=== PATIENT | male | born 1960 | race Caucasian/White ===

== ENCOUNTER 2017-03-24 20:05 | Emergency (ER) | payer OTHER ==
[~2017-03-24] VITALS: Ht 182.9 cm; Wt 100.8 kg
[2017-03-24 20:07] VITALS: BP 140/86
[2017-03-24] MEDS ORDERED: FAMOTIDINE 20 MG/2 ML IVP ONE (20:30)
[2017-03-24] MEDS ORDERED: MORPHINE SULFATE 4 MG/ML, 1ML IVPush PRN (20:30)
[2017-03-24] MEDS ORDERED: SODIUM CHLORIDE 0.9% 1,000ML IVBOLUS ONE (20:30)
[2017-03-24] MEDS ORDERED: ONDANSETRON 2MG/ML, 2ML IVPush ONE (20:30)
[2017-03-24] MEDS ORDERED: SODIUM CHLORIDE FLUSH 10ML SYR IVF ONE (20:30)
[2017-03-24] MEDS ORDERED: ONDANSETRON 2MG/ML, 2ML ONE (20:54)
[2017-03-24] MEDS ORDERED: FAMOTIDINE 20 MG/2 ML ONE (20:54)
[2017-03-24 21:05] LABS: HEMATOCRIT 47.5 % (39.2-51.8); HEMOGLOBIN 16.2 g/dL (13.7-18.0); WHITE BLOOD COUNT 16.2 x10^3/uL (3.4-10)
[2017-03-24 21:19] LABS: ASPARTATE AMINO TRANSFERASE 12 U/L (15-37); BLOOD UREA NITROGEN 20 mg/dL (7-18)
[2017-03-24] MEDS ORDERED: OMNIPAQUE 350 MG/ML, 100ML BOTTLE ONE (21:51)
== END 2017-03-24 23:16 | disposition home or self-care (01) ==
LOC: ED 23:00
DX: A09 Infectious gastroenteritis and colitis, unspecified (principal); N39.0 Urinary tract infection, site not specified
CPT/HCPCS: 36415; 74020; 74177; 80053; 81001; 83690; 85025; 87086; 93005; 96361; 96374; 96375; 99285; J2405; J7030; Q9967; S0028

== ENCOUNTER 2020-12-30 18:08 | Inpatient (IN) | payer OTHER ==
[~2020-12-30] VITALS: Ht 182.9 cm; Wt 93.5 kg
[2020-12-30] MEDS ORDERED: PLEASE ENTER HEIGHT AND WEIGHT MC SCH (18:30)
--- NOTE | 2020-12-30 18:55 | NUR ---
UA sent from triage
[2020-12-30 19:18] LABS: MICROSCOPIC INDICATED
[2020-12-30] MEDS ORDERED: SODIUM CHLORIDE FLUSH 10ML SYR IVF ONE ×2 (19:30→21:30)
[2020-12-30 19:34] LABS: BASOPHILS % (AUTO) 0 % (0-1); EOSINOPHILS % (AUTO) 0 % (1-7); LYMPHOCYTES % (AUTO) 4 % (22-44); MEAN CORPUSCULAR HEMOGLOBIN 31.2 pg (27.5-34.5); MEAN CORPUSCULAR HGB CONC 34.1 g/dL (33.2-36.2); MEAN PLATELET VOLUME 7.6 fL (7.4-10.4); MONOCYTES % (AUTO) 7 % (2-9); NEUTROPHILS % (AUTO) 88 % (42-75); PLATELET COUNT 247 x10^3/uL (130-400); RED BLOOD COUNT 5.06 x10^6/uL (4.38-5.82); RED CELL DISTRIBUTION WIDTH 13.3 % (9.4-14.8)
[2020-12-30 19:42] LABS: ALBUMIN 3.6 g/dL (3.4-5.0); ANION GAP 9 mmol/L (5-15); CALCIUM 8.9 mg/dL (8.5-10.1); CHLORIDE 100 mmol/L (98-107); CREATININE 1.44 mg/dL (0.7-1.3)
[2020-12-30 19:51] LABS: ALANINE AMINOTRANSFERASE 28 U/L (12-78); ALKALINE PHOSPHATASE 65 U/L (45-117); BILIRUBIN,TOTAL 1.8 mg/dL (0.2-1.0); TOTAL PROTEIN 7.7 g/dL (6.4-8.2)
[2020-12-30] MEDS ORDERED: ONDANSETRON 2MG/ML, 2ML IVPush ONE (21:30)
[2020-12-30] MEDS ORDERED: SODIUM CHLORIDE 0.9% 1,000ML IVBOLUS ONE (21:30)
--- NOTE | 2020-12-30 21:37 | NUR ---
PT C/O OF RLQ ABD PAIN SINCE THURSDAY. PT REPORTS FATIGUE AND NAUSEA. REPORTS FEVER/CHILL. DENIES CP, SOB, HEADACHE. ATTACHED TO MONITORS, VSS. KENT AT [facility] AT [facility] FOR EVAL.
[2020-12-30] MEDS ORDERED: MORPHINE SULFATE 4 MG/ML, 1ML ONE (21:52)
[2020-12-30] MEDS ORDERED: ONDANSETRON 2MG/ML, 2ML ONE (21:52)
[2020-12-30] MEDS: MORPHINE SULFATE 4 MG/ML, 1ML IVPush PRN (22:04)
--- NOTE | 2020-12-30 22:41 | NUR ---
PT OFF UNIT IN IMAGING.
[2020-12-30] MEDS ORDERED: OMNIPAQUE 350 MG/ML, 100ML BOTTLE ONE (23:57)
[2020-12-31] MEDS ORDERED: MORPHINE SULFATE 4 MG/ML, 1ML ONE
--- NOTE | 2020-12-31 00:02 | NUR ---
ANTIBIOTICS STARTED BEFORE CULTURES. NOTIFIED ERMD. ABOUT 1/4 OF ATX ENTERED PT. PAUSED ATX AND WILL CONTINUE TO START IT BACK UP AFTER BLOOD CULTURES HAVE BEEN COMPLETED. NADN. PT STATING PAIN IS STARTING TO COME BACK. VSS. WCTM
[2020-12-31] MEDS: MORPHINE SULFATE 4 MG/ML, 1ML IVPush PRN (00:07)
[2020-12-31] MEDS ORDERED: SODIUM CHLORIDE 0.9% 1,000ML IVBOLUS ONE (00:30)
[2020-12-31] MEDS ORDERED: PIPERACILLIN/TAZO 3.375 GM in DEXTROSE 5% 50 ML IVPB ONE (00:30)
--- NOTE | 2020-12-31 01:12 | NUR ---
GAVE REPORT TO EDER ZAFAR
[2020-12-31 01:29] VITALS: BP 112/73
[2020-12-31 02:03] VITALS: BP 112/73
[2020-12-31] MEDS ORDERED: BUPIVACAINE/PF 0.5% ONE (04:26)
[2020-12-31] MEDS ORDERED: EPINEPHRINE 1 MG/ML, 1ML ONE (04:26)
[2020-12-31] MEDS ORDERED: FENTANYL PF 100 MCG/2ML ONE ×3 (05:35→09:25)
[2020-12-31] MEDS ORDERED: HYDROmorphone 1 MG/ML, 1ML INJ IVPush PRN (06:00)
[2020-12-31] MEDS ORDERED: MIDAZOLAM 1 MG/ML, 2ML IV PRN (06:00)
[2020-12-31] MEDS ORDERED: PROMETHAZINE 25 MG/ML, 1ML IVPush PRN (06:00)
[2020-12-31] MEDS ORDERED: LABETALOL 5MG/ML, 20ML IV PRN (06:00)
[2020-12-31] MEDS ORDERED: ACETAMINOPHEN 325 MG TABLET PO PRN (06:00)
[2020-12-31] MEDS ORDERED: MEPERIDINE/PF 25MG/0.5ML IVPush PRN (06:00)
[2020-12-31] MEDS ORDERED: OXYcodone 5 MG/5 ML ORAL.SOL UDC PO PRN (06:00)
[2020-12-31] MEDS ORDERED: ALBUTEROL SULFATE 2.5 MG/3 ML NPPB PRN (06:00)
[2020-12-31] MEDS ORDERED: HYDROmorphone 1 MG/ML, 1ML INJ ONE (06:31)
[2020-12-31] MEDS ORDERED: GLYCOPYRROLATE 0.2MG/1ML, 5ML ONE (08:07)
[2020-12-31] MEDS ORDERED: PROPOFOL 10 MG/ML, 20ML ONE (08:07)
[2020-12-31] MEDS ORDERED: ROCURONIUM 10MG/ML,5ML ONE ×2 (08:07)
[2020-12-31] MEDS ORDERED: ONDANSETRON 2MG/ML, 2ML ONE (08:07)
[2020-12-31] MEDS ORDERED: CEFAZOLIN 1,000 MG ONE (08:07)
[2020-12-31] MEDS ORDERED: DEXAMETHASONE 4 MG/ML, 1ML ONE (08:07)
[2020-12-31] MEDS ORDERED: LIDOCAINE-MPF 2% ,5ML ONE (08:07)
[2020-12-31] MEDS ORDERED: NEOSTIGMINE 1 MG/ML, 10ML ONE (08:07)
[2020-12-31] MEDS: FENTANYL PF 100 MCG/2ML IV PRN ×3 (09:27→09:52)
[2020-12-31] MEDS ORDERED: ACETAMINOPHEN 650 MG/20.3 ML UDC ONE (09:36)
[2020-12-31] MEDS ORDERED: OXYcodone 5 MG/5 ML ORAL.SOL UDC ONE (09:36)
[2020-12-31] MEDS ORDERED: OXYcodone IR 5MG TABLET PO PRN (13:00)
[2020-12-31] MEDS: ACETAMINOPHEN 500 MG TABLET PO SCH ×2 (13:24→19:40)
[2020-12-31 15:30] VITALS: BP 123/74
[2020-12-31] MEDS: KETOROLAC 30 MG/1 ML IVPush SCH ×2 (15:47→21:21)
[2020-12-31] MEDS: OXYcodone IR 5MG TABLET PO PRN ×2 (18:03→22:37)
[2020-12-31] MEDS: GABAPENTIN 300 MG CAPSULE PO SCH ×2 (18:03→21:21)
[2020-12-31] MEDS: CALCIUM CARBONATE 500 MG TAB.CHEW PO PRN ×2 (18:03→21:34)
[2020-12-31] MEDS: PIPERACILLIN/TAZO 4.5 GM in DEXTROSE 5% 100 ML IVPB SCH (18:32)
[2020-12-31 20:09] VITALS: BP 122/77
[2020-12-31] MEDS: LACTATED RINGERS 1,000 ML IV SCH (21:21)
[2020-12-31 23:43] VITALS: BP 104/64
[2021-01-01] MEDS: PIPERACILLIN/TAZO 4.5 GM in DEXTROSE 5% 100 ML IVPB SCH ×4 (00:19→18:16)
[2021-01-01] MEDS: KETOROLAC 30 MG/1 ML IVPush SCH ×4 (02:33→21:10)
[2021-01-01] MEDS: ACETAMINOPHEN 500 MG TABLET PO SCH ×4 (02:33→19:40)
[2021-01-01 03:41] VITALS: BP 103/64
[2021-01-01] MEDS: OXYcodone IR 5MG TABLET PO PRN ×2 (06:20→21:10)
[2021-01-01] MEDS: CALCIUM CARBONATE 500 MG TAB.CHEW PO PRN ×4 (06:27→21:10)
[2021-01-01 06:29] LABS: BASOPHILS % (AUTO) 0 % (0-1); EOSINOPHILS % (AUTO) 0 % (1-7); LYMPHOCYTES % (AUTO) 6 % (22-44); MEAN CORPUSCULAR HEMOGLOBIN 31.3 pg (27.5-34.5); MEAN CORPUSCULAR HGB CONC 33.8 g/dL (33.2-36.2); MEAN PLATELET VOLUME 8.4 fL (7.4-10.4); MONOCYTES % (AUTO) 8 % (2-9); NEUTROPHILS % (AUTO) 87 % (42-75); PLATELET COUNT 215 x10^3/uL (130-400); RED BLOOD COUNT 3.85 x10^6/uL (4.38-5.82); RED CELL DISTRIBUTION WIDTH 13.9 % (9.4-14.8)
[2021-01-01 06:31] LABS: ALANINE AMINOTRANSFERASE 28 U/L (12-78); ALBUMIN 2.5 g/dL (3.4-5.0); ANION GAP 6 mmol/L (5-15); CALCIUM 8.1 mg/dL (8.5-10.1); CHLORIDE 104 mmol/L (98-107); CREATININE 1.32 mg/dL (0.7-1.3)
[2021-01-01 06:34] LABS: ALKALINE PHOSPHATASE 51 U/L (45-117); BILIRUBIN,TOTAL 0.8 mg/dL (0.2-1.0); TOTAL PROTEIN 5.8 g/dL (6.4-8.2)
[2021-01-01] MEDS: GABAPENTIN 300 MG CAPSULE PO SCH ×3 (08:26→21:10)
[2021-01-01 08:27] VITALS: BP 95/59
[2021-01-01] MEDS: LACTATED RINGERS 1,000 ML IV SCH ×2 (08:37→19:41)
[2021-01-01 11:37] LABS: BASOPHILS % (AUTO) 1 % (0-1); EOSINOPHILS % (AUTO) 0 % (1-7); LYMPHOCYTES % (AUTO) 5 % (22-44); MEAN CORPUSCULAR HEMOGLOBIN 31.4 pg (27.5-34.5); MEAN CORPUSCULAR HGB CONC 33.6 g/dL (33.2-36.2); MEAN PLATELET VOLUME 8.2 fL (7.4-10.4); MONOCYTES % (AUTO) 7 % (2-9); NEUTROPHILS % (AUTO) 86 % (42-75); PLATELET COUNT 223 x10^3/uL (130-400); RED BLOOD COUNT 3.92 x10^6/uL (4.38-5.82); RED CELL DISTRIBUTION WIDTH 13.6 % (9.4-14.8)
[2021-01-01 11:46] LABS: ANION GAP 7 mmol/L (5-15); CALCIUM 8.5 mg/dL (8.5-10.1); CHLORIDE 101 mmol/L (98-107)
[2021-01-01 11:57] LABS: CREATININE 1.48 mg/dL (0.7-1.3)
[2021-01-01 12:05] LABS: C-REACTIVE PROTEIN, QUANT > 19.00 mg/dL (0.02-0.49)
[2021-01-01 13:11] VITALS: BP 113/78
[2021-01-01 20:29] VITALS: BP 128/81
[2021-01-02] MEDS: PIPERACILLIN/TAZO 4.5 GM in DEXTROSE 5% 100 ML IVPB SCH ×4 (01:24→19:31)
[2021-01-02] MEDS: ACETAMINOPHEN 500 MG TABLET PO SCH ×4 (01:24→21:47)
[2021-01-02] MEDS: OXYcodone IR 5MG TABLET PO PRN ×2 (01:24→17:15)
[2021-01-02] MEDS: CALCIUM CARBONATE 500 MG TAB.CHEW PO PRN ×3 (01:30→08:00)
[2021-01-02 03:19] VITALS: BP 133/79
[2021-01-02] MEDS: KETOROLAC 30 MG/1 ML IVPush SCH ×4 (03:58→23:22)
[2021-01-02] MEDS: LACTATED RINGERS 1,000 ML IV SCH ×2 (03:58→10:42)
[2021-01-02 05:33] LABS: BASOPHILS % (AUTO) 0 % (0-1); EOSINOPHILS % (AUTO) 2 % (1-7); LYMPHOCYTES % (AUTO) 6 % (22-44); MEAN CORPUSCULAR HGB CONC 34.7 g/dL (33.2-36.2); MEAN PLATELET VOLUME 8.3 fL (7.4-10.4); MONOCYTES % (AUTO) 8 % (2-9); NEUTROPHILS % (AUTO) 83 % (42-75); PLATELET COUNT 235 x10^3/uL (130-400); RED BLOOD COUNT 3.92 x10^6/uL (4.38-5.82); RED CELL DISTRIBUTION WIDTH 13.5 % (9.4-14.8)
[2021-01-02 05:38] LABS: CHLORIDE 102 mmol/L (98-107)
[2021-01-02 05:51] LABS: ANION GAP 4 mmol/L (5-15); CALCIUM 8.5 mg/dL (8.5-10.1); CREATININE 1.21 mg/dL (0.7-1.3)
[2021-01-02] MEDS: GABAPENTIN 300 MG CAPSULE PO SCH ×3 (07:59→21:47)
[2021-01-02 08:07] VITALS: BP 138/83
[2021-01-02 14:01] VITALS: BP 152/91
[2021-01-02] MEDS: FAMOTIDINE 20 MG TABLET PO SCH ×2 (14:53→21:47)
[2021-01-02 19:55] VITALS: BP 146/78
[2021-01-03] MEDS: PIPERACILLIN/TAZO 4.5 GM in DEXTROSE 5% 100 ML IVPB SCH ×4 (01:32→20:10)
[2021-01-03 01:59] VITALS: BP 147/88
[2021-01-03] MEDS: ACETAMINOPHEN 500 MG TABLET PO SCH ×4 (04:12→20:10)
[2021-01-03] MEDS: OXYcodone IR 5MG TABLET PO PRN ×2 (04:17→20:13)
[2021-01-03] MEDS: KETOROLAC 30 MG/1 ML IVPush SCH ×4 (05:31→23:27)
[2021-01-03 07:45] VITALS: BP 147/89
[2021-01-03] MEDS: D5%-0.45NACL+KCL 20MEQ 1,000 ML IV SCH ×3 (09:04→23:27)
[2021-01-03] MEDS: FAMOTIDINE 20 MG TABLET PO SCH ×2 (09:10→20:10)
[2021-01-03] MEDS: GABAPENTIN 300 MG CAPSULE PO SCH ×3 (09:10→20:10)
[2021-01-03 09:23] LABS: BASOPHILS % (AUTO) 1 % (0-1); EOSINOPHILS % (AUTO) 5 % (1-7); LYMPHOCYTES % (AUTO) 8 % (22-44); MEAN CORPUSCULAR HEMOGLOBIN 31.8 pg (27.5-34.5); MEAN CORPUSCULAR HGB CONC 34.3 g/dL (33.2-36.2); MONOCYTES % (AUTO) 9 % (2-9); NEUTROPHILS % (AUTO) 77 % (42-75); PLATELET COUNT 280 x10^3/uL (130-400); RED BLOOD COUNT 4.07 x10^6/uL (4.38-5.82); RED CELL DISTRIBUTION WIDTH 13.7 % (9.4-14.8)
[2021-01-03 09:36] LABS: ANION GAP 6 mmol/L (5-15); CALCIUM 8.7 mg/dL (8.5-10.1); CHLORIDE 104 mmol/L (98-107)
[2021-01-03 09:43] LABS: CREATININE 1.36 mg/dL (0.7-1.3)
[2021-01-03] MEDS: AMLODIPINE 10 MG TAB PO SCH (14:03)
[2021-01-03 14:43] VITALS: BP 157/95
[2021-01-03 20:35] VITALS: BP 106/86
[2021-01-04] MEDS: PIPERACILLIN/TAZO 4.5 GM in DEXTROSE 5% 100 ML IVPB SCH ×4 (01:32→23:39)
[2021-01-04 02:20] VITALS: BP 156/87
[2021-01-04] MEDS: ACETAMINOPHEN 500 MG TABLET PO SCH ×4 (03:00→21:38)
[2021-01-04 05:36] LABS: BASOPHILS % (AUTO) 1 % (0-1); EOSINOPHILS % (AUTO) 9 % (1-7); LYMPHOCYTES % (AUTO) 11 % (22-44); MEAN CORPUSCULAR HEMOGLOBIN 31.1 pg (27.5-34.5); MEAN CORPUSCULAR HGB CONC 33.8 g/dL (33.2-36.2); MEAN PLATELET VOLUME 7.1 fL (7.4-10.4); MONOCYTES % (AUTO) 10 % (2-9); NEUTROPHILS % (AUTO) 70 % (42-75); PLATELET COUNT 314 x10^3/uL (130-400); RED BLOOD COUNT 4.11 x10^6/uL (4.38-5.82); RED CELL DISTRIBUTION WIDTH 13.6 % (9.4-14.8)
[2021-01-04 05:47] LABS: CALCIUM 8.7 mg/dL (8.5-10.1); CHLORIDE 105 mmol/L (98-107)
[2021-01-04] MEDS: KETOROLAC 30 MG/1 ML IVPush SCH ×4 (05:47→23:39)
[2021-01-04 05:53] LABS: ALANINE AMINOTRANSFERASE 120 U/L (12-78); ALBUMIN 2.4 g/dL (3.4-5.0); ALKALINE PHOSPHATASE 97 U/L (45-117); ANION GAP 4 mmol/L (5-15); BILIRUBIN,TOTAL 0.7 mg/dL (0.2-1.0); TOTAL PROTEIN 6.1 g/dL (6.4-8.2)
[2021-01-04 07:49] VITALS: BP 139/86
[2021-01-04] MEDS: OXYcodone IR 5MG TABLET PO PRN ×3 (08:42→21:38)
[2021-01-04] MEDS: AMLODIPINE 10 MG TAB PO SCH (09:29)
[2021-01-04] MEDS: GABAPENTIN 300 MG CAPSULE PO SCH ×3 (09:29→21:38)
[2021-01-04] MEDS: D5%-0.45NACL+KCL 20MEQ 1,000 ML IV SCH ×2 (09:30→21:37)
[2021-01-04] MEDS: FAMOTIDINE 20 MG TABLET PO SCH ×2 (09:52→21:38)
[2021-01-04 13:59] VITALS: BP 128/84
[2021-01-04] MEDS: ENOXAPARIN 40 MG/0.4 ML SQ SCH (14:21)
[2021-01-04 20:32] VITALS: BP 145/88
[2021-01-05 02:47] VITALS: BP 135/86
[2021-01-05] MEDS: ACETAMINOPHEN 500 MG TABLET PO SCH ×4 (03:00→21:03)
[2021-01-05] MEDS: PIPERACILLIN/TAZO 4.5 GM in DEXTROSE 5% 100 ML IVPB SCH ×4 (05:36→23:01)
[2021-01-05] MEDS: KETOROLAC 30 MG/1 ML IVPush SCH (05:36)
[2021-01-05 06:40] VITALS: BP 144/87
[2021-01-05] MEDS: GABAPENTIN 300 MG CAPSULE PO SCH ×3 (08:17→21:03)
[2021-01-05] MEDS: FAMOTIDINE 20 MG TABLET PO SCH ×2 (08:17→21:03)
[2021-01-05] MEDS: AMLODIPINE 10 MG TAB PO SCH (08:17)
[2021-01-05] MEDS ORDERED: IBUPROFEN 600 MG TABLET PO PRN (11:00)
[2021-01-05] MEDS: OXYcodone IR 5MG TABLET PO PRN ×2 (11:21→21:09)
[2021-01-05 15:12] VITALS: BP 144/82
[2021-01-05] MEDS: ENOXAPARIN 40 MG/0.4 ML SQ SCH (15:20)
[2021-01-05 20:58] VITALS: BP 139/84
[2021-01-06 02:47] VITALS: BP 131/85
[2021-01-06] MEDS: ACETAMINOPHEN 500 MG TABLET PO SCH ×4 (02:50→21:38)
[2021-01-06] MEDS: OXYcodone IR 5MG TABLET PO PRN ×3 (02:53→21:45)
[2021-01-06] MEDS: PIPERACILLIN/TAZO 4.5 GM in DEXTROSE 5% 100 ML IVPB SCH ×4 (05:14→23:57)
[2021-01-06 05:34] LABS: BASOPHILS % (AUTO) 1 % (0-1); EOSINOPHILS % (AUTO) 8 % (1-7); LYMPHOCYTES % (AUTO) 15 % (22-44); MEAN CORPUSCULAR HEMOGLOBIN 31.7 pg (27.5-34.5); MEAN CORPUSCULAR HGB CONC 34.4 g/dL (33.2-36.2); MEAN PLATELET VOLUME 6.7 fL (7.4-10.4); MONOCYTES % (AUTO) 11 % (2-9); NEUTROPHILS % (AUTO) 66 % (42-75); PLATELET COUNT 389 x10^3/uL (130-400); RED BLOOD COUNT 4.04 x10^6/uL (4.38-5.82); RED CELL DISTRIBUTION WIDTH 13.8 % (9.4-14.8)
[2021-01-06 05:35] LABS: ALBUMIN 2.4 g/dL (3.4-5.0); ANION GAP 5 mmol/L (5-15); CALCIUM 8.5 mg/dL (8.5-10.1); CHLORIDE 104 mmol/L (98-107)
[2021-01-06 05:40] LABS: ALANINE AMINOTRANSFERASE 454 U/L (12-78); ALKALINE PHOSPHATASE 125 U/L (45-117); BILIRUBIN,TOTAL 0.8 mg/dL (0.2-1.0); CREATININE 1.38 mg/dL (0.7-1.3); TOTAL PROTEIN 6.2 g/dL (6.4-8.2)
[2021-01-06 09:58] VITALS: BP 145/89
[2021-01-06] MEDS: GABAPENTIN 300 MG CAPSULE PO SCH ×3 (10:21→21:38)
[2021-01-06] MEDS: FAMOTIDINE 20 MG TABLET PO SCH ×2 (10:22→21:38)
[2021-01-06] MEDS: AMLODIPINE 10 MG TAB PO SCH (10:22)
[2021-01-06 14:00] VITALS: BP 127/84
[2021-01-06] MEDS: ENOXAPARIN 40 MG/0.4 ML SQ SCH (14:36)
[2021-01-06 21:35] VITALS: BP 138/87
[2021-01-07] MEDS: ACETAMINOPHEN 500 MG TABLET PO SCH ×3 (02:58→15:25)
[2021-01-07 03:02] VITALS: BP 147/89
[2021-01-07] MEDS: PIPERACILLIN/TAZO 4.5 GM in DEXTROSE 5% 100 ML IVPB SCH ×2 (05:18→10:50)
[2021-01-07 05:19] LABS: BASOPHILS % (AUTO) 1 % (0-1); EOSINOPHILS % (AUTO) 5 % (1-7); LYMPHOCYTES % (AUTO) 9 % (22-44); MEAN CORPUSCULAR HEMOGLOBIN 31.4 pg (27.5-34.5); MEAN CORPUSCULAR HGB CONC 34.3 g/dL (33.2-36.2); MEAN PLATELET VOLUME 6.4 fL (7.4-10.4); MONOCYTES % (AUTO) 9 % (2-9); NEUTROPHILS % (AUTO) 77 % (42-75); PLATELET COUNT 420 x10^3/uL (130-400); RED BLOOD COUNT 4.15 x10^6/uL (4.38-5.82); RED CELL DISTRIBUTION WIDTH 13.7 % (9.4-14.8)
[2021-01-07 05:30] LABS: ALANINE AMINOTRANSFERASE 425 U/L (12-78); ALBUMIN 2.7 g/dL (3.4-5.0); ANION GAP 4 mmol/L (5-15); CALCIUM 9.2 mg/dL (8.5-10.1); CHLORIDE 104 mmol/L (98-107); CREATININE 1.47 mg/dL (0.7-1.3)
[2021-01-07 05:32] LABS: ALKALINE PHOSPHATASE 134 U/L (45-117); BILIRUBIN,TOTAL 0.8 mg/dL (0.2-1.0); TOTAL PROTEIN 6.4 g/dL (6.4-8.2)
[2021-01-07 08:00] VITALS: BP 135/87
[2021-01-07] MEDS: AMLODIPINE 10 MG TAB PO SCH (08:56)
[2021-01-07] MEDS: GABAPENTIN 300 MG CAPSULE PO SCH (08:56)
[2021-01-07] MEDS: FAMOTIDINE 20 MG TABLET PO SCH (08:57)
[2021-01-07] MEDS ORDERED: AMLO-210 PO (10:04)
[2021-01-07] MEDS ORDERED: DOXA1TAB2 PO (10:04)
[2021-01-07] MEDS ORDERED: FAMO20TA7 PO (12:40)
[2021-01-07] MEDS ORDERED: AMOX1TAB64 PO (12:40)
[2021-01-07] MEDS ORDERED: OXYC5TAB98 PO (12:40)
[2021-01-07 13:00] VITALS: BP 129/81
[2021-01-07] MEDS: ENOXAPARIN 40 MG/0.4 ML SQ SCH (13:22)
== END 2021-01-07 15:35 | disposition home or self-care (01) | DRG 853 ==
LOC: ED 23:49 → EDIP 12-31 00:11 → 4NE 12-31 01:25
PROVIDERS: ADMIT Internal Medicine; ATTEND Family Medicine
PROC: 0DTJ0ZZ Resection of Appendix, Open Approach (ICD-10-PCS; 2020-12-31)
PROC: 0WJG4ZZ Inspection of Peritoneal Cavity, Percutaneous Endoscopic Approach (ICD-10-PCS; 2020-12-31)
PROC: 0DNW0ZZ Release Peritoneum, Open Approach (ICD-10-PCS; 2020-12-31)
PROC: 0DBF0ZZ Excision of Right Large Intestine, Open Approach (ICD-10-PCS; 2020-12-31)
PROC: 0DJD4ZZ Inspection of Lower Intestinal Tract, Percutaneous Endoscopic Approach (ICD-10-PCS; principal; 2020-12-31 05:30)
DX: A41.9 Sepsis, unspecified organism (principal); K35.32 Acute appendicitis with perforation, localized peritonitis, and gangrene, without abscess; N17.0 Acute kidney failure with tubular necrosis; K56.7 Ileus, unspecified; R71.0 Precipitous drop in hematocrit; Z20.822 Contact with and (suspected) exposure to COVID-19; I12.9 Hypertensive chronic kidney disease with stage 1 through stage 4 chronic kidney disease, or unspecified chronic kidney disease; N18.30 Chronic kidney disease, stage 3 unspecified; Z53.31 Laparoscopic surgical procedure converted to open procedure; Z80.0 Family history of malignant neoplasm of digestive organs; Z88.8 Allergy status to other drugs, medicaments and biological substances
CPT/HCPCS: 36415; 84145; 96365; 99291; J3490; S0020; 74177; 80048; 80053; 81001; 83605; 83690; 85025; 86140; 87015; 87040; 87070; 87075; 87077; 87102; 87116; 87186; 87205; 87206; 87635; 88304; 88307; G0378; J0171; J0690; J1100; J1170; J1650; J1885; J2405; J2543; J2704; J2710; J3010; Q9967; C1765; J2270; J3480; J7030; J7120